=== PATIENT | male | born 1960 | race Caucasian/White ===

== ENCOUNTER → 2017-03-17 | Outpatient (CLI) | payer OTHER ==
[2017-03-17 10:59] LABS: BLOOD UREA NITROGEN 13 mg/dl (7-18); CALCIUM 8.9 mg/dl (8.5-10.1); CARBON DIOXIDE 27 mmol/L (21-32); CREATININE 1.06 mg/dl (0.60-1.40); GLUCOSE 111 mg/dl (70-99); SODIUM 135 mmol/L (136-145)
[2017-03-17 11:06] LABS: CHOLESTEROL 153 mg/dl (0-200); LDL CHOLESTEROL CALCULATED 83 mg/dl
== END | disposition home or self-care (01) ==
LOC: C.LAB1850 08:33
PROVIDERS: ATTEND Internal Medicine
DX: Z00.00 Encounter for general adult medical examination without abnormal findings (principal); Z11.59 Encounter for screening for other viral diseases; R73.9 Hyperglycemia, unspecified; Z12.5 Encounter for screening for malignant neoplasm of prostate

== ENCOUNTER → 2017-05-14 | Outpatient (CLI) | payer OTHER ==
[2017-05-14 16:43] LABS: BASO % 0.6 %; BASO ABS # 0.04 K/uL (0-0.2); EOS % 2.5 %; EOS ABS # 0.18 K/uL (0-0.5); HEMATOCRIT 42.4 % (42-52); HEMOGLOBIN 15.1 g/dL (14.0-18.0); IG# 0.01 K/uL (0.00-0.02); LYMPH % 28.6 %; LYMPH ABS # 2.05 K/uL (1.2-3.4); MEAN CELL VOLUME 89.1 fL (80-100); MEAN CORPUSCULAR HEMOGLOBIN 31.7 pg (25-34); MEAN CORPUSCULAR HGB CONC 35.6 g/dl (32-36); MEAN PLATELET VOLUME 9.9 fL (7.4-10.4); NEUT % 61.2 %; NEUT ABS # 4.39 K/uL (1.4-6.5); PLATELET COUNT 246 K/uL (130-400); RED CELL DISTRIBUTION WIDTH SD 42.5 fL (36.4-46.3); WHITE BLOOD COUNT 7.17 K/uL (4.8-10.8)
== END | disposition home or self-care (01) ==
LOC: C.LAB1850 15:56
PROVIDERS: ATTEND Nurse Practitioner Adult Health
DX: R53.83 Other fatigue (principal)

== ENCOUNTER → 2017-09-25 | Outpatient (CLI) | payer OTHER ==
--- NOTE | 2017-09-26 06:29 | PAP/PSG TECHNICIAN REPORT ---
[facility] Compliance [employer] Polysomnogram Report Study name: None Report date: 09/26/2017 Study date: 09/25/2017 Referring Physician: DR. JIM PRO Name: ESHA DAWKINS Interpreting Physician: Juan Manuel Rodriguez D.O. Date of : 1960 Compliance Engineer Products: Karina Brooke, PATRICIAT. Sex: Male Age: 57 StudyType: PSG Weight: 189 lbs Height: 57 years, Height 6' 0" Neck Circum:16 inches BMI: 25.63 Medications: Claritin, Melatonin Patient History 57-year-old male presents to the sleep lab for a split night study. Patient states he wakes often during sleep, wakes unrefreshed=19, Neck=16 inches Parameters Monitored NPSG: E1-M2, E2-M1, Fp1-M2, Fp2-M1, F3-M2, F4-M2, F4-M1, C3-M2, C4-M2, C4-M1, O1-M2, O2-M2, O2-M1, T3-M2, T4-M1, P3-M2, P4-M1, CHIN1, CHIN2, HR, EKG, Legs, PFLOW, SNOR, FLOW, CFLOW, Tidal Volume, THOR, ABDO, SpO2, PLTH, CPRESS, ETCO2 Wave, ETCO2, pH Sleep Architecture Sleep Stages Time at Lights Off 10:13:30 PM STAGES Time (min.) TST (%) Time at Lights On 5:31:00 AM Wake 56.0 -- Total Recording Time (TRT) 437.00 min. N1 5.0 1 Total Sleep Period (TSP) 433.5 min. N2 274.5 72 Total Sleep Time (TST) 380.5min. N3 37.5 10 Awake Time 56.0 min. REM 63.5 17 Wake after Sleep Onset 53.0 min. Sleep Efficiency (SE) 87 % Sleep Onset Latency (NETTA) 4.0 min. Number of Stage 1 Shifts None Awakenings 4 Stage Changes 44 Number of REM periods 8 REM 63.5 17 REM Latency 50.0 min. NREM 317.0 83 Body Position Analysis Supine Right Left Side Prone Vertical Total Sleep Time (min.) 90.7 186.5 116.4 302.86 0.0 0.0 Total Sleep Time (%) 20% 49% 31% 80 0% N/A% Total Sleep Time REM (min.) 9.5 25.5 28.5 None 0.0 0.0 Total Sleep Time NREM (min.) 68.1 161.0 87.9 None 0.0 0.0 Intermittent Wake (min.) 13.0 6.0 37.0 None 0.0 0.0 Total Sleep Period (%) 20% None None None None None Arousals Myoclonus (PLM) * Events Count Index Events Count Index Spontaneous 80 13 Events Awake (PLMW) 0 0.0 Respiratory 5 0.8 Events Asleep w/ Arousal (PLMA) 4 0.6 PLM 4 1 Events Asleep w/o Arousal (PLMS) 118 18.6 Snoring 16 3 Total Asleep 122 19.2 Total 105 17 Total 122 17 Respiratory Analysis * CA OA MA CH H RERA Total Count 0 1 0 0 13 0 14 Index 0.0 0.2 0.0 0 2.0 0 2.2 Mean Duration 0.0 24.9 0.0 0.00 23.5 0.0 23.6 Longest Duration 0.0 24.9 0.0 0.00 0.0 0.0 44.6 Respiratory Event Summary Total Supine ~Supine Right Left Prone REM NREM Apneas Count 1 1 0 0 0 N/A 1 0 Index 0.2 1 0 0.0 0.0 N/A 1 0 Hypopneas (4% Desat) Count 13 11 2 2 0 N/A 6 7 Index 2.0 8.5 0 0.6 0.0 N/A 5.7 1.3 Apneas & All Hypopneas Count 14 12 2 2 0 N/A 7 7 Index 2.2 9 0 1 0 N/A 6.6 1.3 Respiratory Events (Senior Accountant+All Hyp+RERA) Count 14 12 2 2 0 N/A 7 7 Index 2.2 9 0 0.6 0.0 N/A 6.6 1.3 Respiratory Related Arousal Count 5 12 2 2 0 N/A 1 4 Index 0.8 2 0 1 0 N/A 1 1 Snoring Analysis Supine Right Left Prone REM NREM Total Snore duration 23.0 min Snores count 581 124 34 N/A 86 653 739 Snore mean duration 1.9 Sec Snores index 449 40 18 N/A 81.3 123.6 116.5 TST with snoring (%) 6.0% Desaturation Event Summary: Minimum %SpO2 Event Count Mean/Min/Max Duration(sec.) Desaturation Index % Time In Bed > 90 17 38.2 / 14.8 / 59.5 2.4 99.6 86 - 90 0 N/A 0.0 0.4 81 - 85 0 N/A 0.0 0.0 76 - 80 0 N/A 0.0 0.0 71 - 75 0 N/A 0.0 0.0 66 - 70 0 N/A 0.0 0.0 61 - 65 0 N/A 0.0 0.0 56 - 60 0 N/A 0.0 0.0 51 - 55 0 N/A 0.0 0.0 < 50 0 N/A 0.0 0.0 Total REM NREM Awake <50% 0.0 min. 0.0 min. 0.0 min. 0.0 min. 51 - 60% 0.0 min. 0.0 min. 0.0 min. 0.0 min. 61 - 70% 0.0 min. 0.0 min. 0.0 min. 0.0 min. 71 - 80% 0.0 min. 0.0 min. 0.0 min. 0.0 min. 81 - 90% 1.9 min. 1.3 min. 0.4 min. 0.2 min. 91 - 100% 429.5 min. 62.2 min. 316.6 min. 50.7 min. Average 95 95 95 94 Minimum SpO2 85 86 85 89 Desaturation Event Index 2.3 6.6 1.9 0.0 # Desat. Events below 89% 3 2 1 N/A Time(%) with Saturation below 89% 0.2 0.1 0.1 0.0 Time(min.) with Saturation below 89% 0.7 0.4 0.3 0.0 Time (mins) REM (mins) NREM (mins) % of TST SpO2 Below 90% 6 3 N3 0.3 SpO2 Below 88% 1 0 0 0 Heart Rate Analysis Min (bpm) Max (bpm) Average (bpm) Awake 49 87 59 NREM 45 90 58 REM 47 86 60 Overall 45 90 59 Supplemental O2 Values Minimum O2 level: None Value Start Time End Time Compliance Engineer Products Comments PSG Study Mr. Dawkins slept in the right, left, and supine positions. No cardiac arrhythmia. PLM's noted. No bruxism noted. Snoring was noted and scored as a 3 on a scale of 1 through 5. (0=no snoring, 5=snoring loud enough to be heard through a closed door or down the [address] way) Mr. Dawikns awoke to use the restroom one time during the night. Mr. Dawkins stated, I did not sleep as well as I do when I am in my own bed. The final report will be interpreted and signed by a sleep physician. The completed physician report will then be placed in the patient medical record Patient was a restless sleeper; moderate snoring was displayed. No significant respiratory events were displayed. Patient stated that he is so tired most of the times that he doesn't know what to do with himself. Therapy (cm H2O) 0 TIB (min.) 436.5 TST (min.) 380.5 Sleep Onset (min.) 4.0 REM Onset From Sleep (min.) 50.0 Sleep Efficiency % 87 Wakefulness (%) 13 Wakefulness (min.) 56.0 NREM 1 (%) 1 NREM 1 (min.) 5.0 NREM 2 (%) 72 NREM 2 (min.) 274.5 NREM 3 (%) 10 NREM 3 (min.) 37.5 REM (%) 17 REM (min.) 63.5 # Arousals 105 Arousal Index 17 # Snore 739 Snore Index 116.5 AHI 2.2 AHI Supine 9 AHI Non-Supine 0 NREM AHI 1.3 REM AHI 6.6 RDI 2.2 # Obstructive Apnea 1 # Central Apnea 0 # Mixed Apnea 0 # Hypopneas 13 RERAs 0 Total Respiratory Events 17 Time Below SpO2 89% (min.) 0.7 Mean NREM SpO2 (%) 95 Mean REM SpO2 (%) 95 Mean Sleep SpO2 (%) 95 Min NREM SpO2 (%) 85 Min REM SpO2 (%) 86 Position Supine (min.) 90.7 Position Non-supine (min.) 302.9 LM Index Sleep 19.2 LM Index NREM 21.2 LM Index REM 9.4 Mean Heart Rate (bpm) 59 Min Heart Rate (bpm) 45
--- NOTE | 2017-09-26 18:53 | POLYSOMNOGRAPH REPORT ---
CLINICAL DATA: The patient is a 57-year-old male with a history of snoring, disturbed nocturnal sleep, and excessive daytime somnolence. His [place] Sleepiness Scale score is 19. This was an in-lab overnight polysomnography. SLEEP ARCHITECTURE: The total sleep period was 433.5 minutes. The total sleep time was 380.5 minutes. The sleep efficiency was borderline normal at 87%. The sleep latency was 4 minutes. Wake after sleep onset was 53 minutes. The REM latency was mildly shorter than normal at 50 minutes. There were 3 REM periods during the night. Sleep consisted of stage N1 of 1%, stage N2 of 72%, stage N3 of 10%, stage REM 17%. AROUSAL DATA: The patient had a total of 105 arousals including 80 spontaneous arousals, 5 respiratory arousals, 4 PLM arousals, and 16 snoring arousals. The arousal index was 17. PERIODIC LIMB MOVEMENT DATA: The patient had a total of 122 periodic limb movements for a PLM index of 19.2. This would be moderately elevated. There were only 4 arousals associated with limb movements for a PLM arousal index of 0.6. ELECTROCARDIOGRAM: The underlying cardiac rhythm was normal sinus. The cardiac rates ranged from 45-90 beats per minute. The average heart rate was 59 beats per minute. No cardiac arrhythmias were noted. RESPIRATORY DATA: The patient had a total of 14 respiratory events including 1 obstructive apnea and 13 hypopneas. Hypopneas were scored according to the 4% desaturation rule. The apnea was 24.9 seconds in length. The mean duration of the hypopneas was 23.5 seconds. The apnea hypopnea index was 2.2 events per hour. This would suggest no significant sleep apnea. OXIMETRY DATA: The average saturation for the night was 95%. The minimum saturation was 85%. This was very transient. There was only 0.7 minutes with saturations less than 89%. HELP DESK REP COMMENTS: Mr. Grove slept in the right, left, and supine positions. No cardiac arrhythmia. PLMs noted. No bruxism noted. Snoring was noted and scored as a 3 on a scale of 1 through 5. Mr. Grove awoke to use the restroom one time during the night. He stated he did not sleep as well as he does in his own bed. The patient was a restless sleeper. IMPRESSION: 1. Primary snoring. 2. Excessive daytime somnolence of undetermined etiology. COMMENTS: The patient had no significant sleep apnea. His sleep efficiency was borderline normal. Sleep architecture was normal. He had a modest number of limb movements, but with few arousals. He gave no history of restless legs either before bed or in bed. There was an increase in frequency of spontaneous arousals. I cannot entirely exclude some degree of upper airway resistance. He does not meet criteria for treatment at the present time. RECOMMENDATIONS: 1. It is advised that the patient be aware of the appropriate principles of sleep hygiene including having a regular sleep-wake schedule and allowing approximately 7.5-8 hours of sleep per night. 2. The patient should follow up with Dr. Pike's office. He should be evaluated for other medical conditions that could contribute to daytime somnolence such as vitamin D deficiency, hypothyroidism, etc. 3. If possible, the patient should avoid sleeping in the supine position, as there are typically more respiratory events and snoring while supine.
== END | disposition home or self-care (01) ==
LOC: C.NEUR 21:00
PROVIDERS: ATTEND Internal Medicine Pulmonary Disease
DX: R06.83 Snoring (principal); R40.0 Somnolence